=== PATIENT | male | born 1955 | race Hispanic/Latino ===

== ENCOUNTER 2019-01-11 09:49 | Inpatient (IN) | payer BC ==
[2019-01-11 10:03] VITALS: BMI 32.1
[2019-01-11] MEDS ORDERED: Sodium Chloride 0.9% 1,000 ML IV ONE (10:22)
--- NOTE | 2019-01-11 10:24 | C.PDOC ---
History Of Present Illness 63 year old male presents to ED with worsening left hip pain for the past 3 days. Patient is s/p a left hip stem cell infusion from 01/08. Per patient's , needle was accidentally left behind. Attempted to have needle removed by jazz stewart. Patient was evaluated at [facility] for the same complaint, but "they refuse to admit him to take it out." Patient states that the pain is localized,worse with weight bearing, and position change. Patient is currently taking amoxicillin. Patient is receiving stem cell infusion for left hip arthritis. Patient denies fever and discharge. WORSENING L HIP PAIN SINCE 01/08. S/P STEM CELL L HIP INFUSION 01/08, PER NEEDLE ACCID LEFT BEHIND. ATTEMPTED NEEDLE REMOVAL BY SURGEON, RENATA @ [facility] FOR SAME "BUT THEY REFUSED TO ADMIT HIM TO TAKE IT OUT". PAIN LOCALIZED WORSE W WT BEAR, POSITION CHANGE. ON AMOXIL. NO FEVER, DC. RECEIVING STEM CELL INFUSION FOR L HIP ARTHRITIS EXAM NONTOXIC EXT L HIP AROM WO DIFF REPRODUC PAIN REMAINDER NEG Time Seen by Provider: 01/11/19 10:22 Chief Complaint (Nursing): Abnormal Skin Integrity History Per: Patient, Family () Onset/Duration Of Symptoms: Days (3), Worse Since Current Symptoms Are (Timing): Still Present Past Medical History Reviewed: Historical Data, Nursing Documentation, Vital Signs Vital Signs: Last Vital Signs Temp 98.5 F 01/11/19 10:04 Pulse 66 01/11/19 10:04 Resp 18 01/11/19 10:04 BP 129/85 01/11/19 10:04 Pulse Ox 97 01/11/19 10:04 - Medical History PMH: Arthritis (left hip), Kidney Stones (2010; LEFT KIDNEY), Obstructive Bowel (SBO (2011)), Chronic Kidney Disease (SEE COMMENT) Family History: States: Unknown Family Hx - Social History Hx Alcohol Use: Yes Hx Substance Use: No - Immunization History Hx Tetanus Toxoid Vaccination: Yes Hx Influenza Vaccination: No Hx Pneumococcal Vaccination: No Review Of Systems Constitutional: Negative for: Fever, Weakness Musculoskeletal: Positive for: Other (left hip pain ) Skin: Negative for: Other (discharge from the left hip ) Neurological: Negative for: Weakness, Numbness Physical Exam - Physical Exam Appears: Non-toxic Skin: Normal Color, Warm, Dry Head: Atraumatic, Normacephalic Neck: Normal ROM, Supple Chest: Symmetrical, No Deformity Cardiovascular: Rhythm Regular, No Murmur Respiratory: Accessory Muscle Use, No Rales, No Rhonchi, No Wheezing Gastrointestinal/Abdominal: Soft, No Tenderness Extremity: Capillary Refill (<2 seconds), Other (left hip AROM with out difficulty, reproducible pain ) Pulses: Left Radial: Normal, Right Radial: Normal, Left Dorsalis Pedis: Normal, Right Dorsalis Pedis: Normal Neurological/Psych: Oriented x3, Normal Speech, Normal Cognition ED Course And Treatment - Laboratory Results Result Diagrams: 01/11/19 10:44 01/11/19 10:44 ECG: Interpreted By Me ECG Rhythm: Sinus Rhythm ECG Interpretation: Normal Rate From EC O2 Sat by Pulse Oximetry: 97 (in RA) Pulse Ox Interpretation: Normal - Radiology CXR: Interpreted by Me CXR Interpretation: Yes: No Acute Disease - Other Rad L HIP X-Ray: Interpreted by Me (+L HIP FOREIGN BODY; NO FX) Progress Note: EKG, CXR, and Left hip X-ray ordered for patient. Labs ordered with CBC and CMP. Patient given IV fluids. Progress - Re-Evaluation Re-evaluation Note: 01/11/19 10:[address] angulo, CT HIP PRIOR TO O.R. ADMIT TO HIS C - Data Reviewed Data Reviewed: Lab, Diagnostic imaging, EKG, Old records Disposition Counseled Patient/Family Regarding: Studies Performed, Diagnosis - Disposition Disposition: HOSPITALIZED Disposition Time: 10:24 Condition: STABLE Forms: [facility] (Romansh) - POA Present On Arrival: None - Clinical Impression Clinical Impression: Foreign body hip/leg - Scribe Statement The provider has reviewed the documentation as recorded by the Scribe (Domonique Ramirez) All medical record entries made by the Scribe were at my direction and personally dictated by me. I have reviewed the chart and agree that the record accurately reflects my personal performance of the history, physical exam, medical decision making, and the department course for this patient. I have also personally directed, reviewed, and agree with the discharge instructions and disposition.
[2019-01-11 10:51] LABS: BASO % 0.2 % (0.0-2.0); EOS # 0.1 K/uL (0.0-0.7); HEMOGLOBIN 15.3 g/dL (12.0-18.0); LYMPH # 2.4 K/uL (1.0-4.3); LYMPH % 17.6 % (20.0-40.0); MEAN CELL VOLUME 87.9 fL (80.0-94.0); MEAN CORPUSCULAR HEMOGLOBIN 30.2 pg (27.0-31.0); MEAN CORPUSCULAR HGB CONC 34.3 g/dL (33.0-37.0); MEAN PLATELET VOLUME 6.7 fL (7.2-11.7); MONO # 1.1 K/uL (0.0-0.8); MONO % 7.7 % (0.0-10.0); NEUT # 10.2 K/uL (1.8-7.0); NEUT % 73.5 % (50.0-75.0); RBC 5.07 Mil/uL (4.40-5.90); RED CELL DISTRIBUTION WIDTH 13.5 % (11.5-14.5); WHITE BLOOD COUNT 13.8 K/uL (4.8-10.8)
[2019-01-11 10:58] LABS: INR 1.2; PROTHROMBIN TIME 12.7 SECONDS (9.7-12.2)
[2019-01-11 11:05] LABS: ALB/GLOB RATIO 1.8 (1.0-2.1); ALBUMIN 4.8 g/dL (3.5-5.0); BLOOD UREA NITROGEN 18 mg/dL (9-20); GFR NON-AFRICAN AMERICAN > 60
[2019-01-11 11:11] LABS: ALT/SGPT 21 U/L (21-72); AST/SGOT 52 U/L (17-59)
--- NOTE | 2019-01-11 11:28 | RAD ---
HISTORY: Pre Op COMPARISON: None available. TECHNIQUE: Chest PA and lateral, 2 views FINDINGS: Examination limited by habitus. LUNGS: 3.3 cm rounded opacity seen only on lateral view the level of the pulmonary arteries, possibly artifactual however alternatives including neoplasm cannot be excluded. PLEURA: No significant pleural effusion identified. No definite pneumothorax . CARDIOVASCULAR: Heart size appears within normal limits. Faint atherosclerotic calcifications present. OSSEOUS STRUCTURES: No acute osseous abnormality identified. VISUALIZED UPPER ABDOMEN: Unremarkable. OTHER FINDINGS: None. IMPRESSION: No focal consolidation, pleural effusion, or pneumothorax. 3.3 cm rounded opacity seen only on lateral view the level of the pulmonary arteries. This is favored artifactual due to confluence of shadows, however alternatives such as neoplasm cannot be entirely excluded. No discrete abnormality identified on frontal view. Recommend follow-up CT of the chest with IV contrast if indicated. Findings discussed with Dr. Krishna on 01/11/19 at 11:24 a.m.
[2019-01-11] MEDS ORDERED: ceFAZolin 1 gm in NS 1 GM/100 ML BAG IVPB ONE (12:56)
[2019-01-11] MEDS ORDERED: Bupivacaine 0.25% 20 ML INJ IJ ONE ×2 (12:57→13:58)
[2019-01-11] MEDS ORDERED: Lidocaine Hydrochloride 0 ML INJ ONE (12:57)
[2019-01-11] MEDS ORDERED: Midazolam 2 MG/2 ML VIAL ONE (13:00)
[2019-01-11] MEDS ORDERED: Propofol 10 mg/ml Inj (20 ML) ONE (13:01)
[2019-01-11] MEDS ORDERED: Lidocaine Hydrochloride 5 ML INJ ONE (13:02)
[2019-01-11] MEDS ORDERED: Succinylcholine Chloride 20 mg/ml Syr (5 ml) IV ONE (13:02)
--- NOTE | 2019-01-11 13:04 | CT ---
CT left hip History: Foreign body. Comparison: X-ray dated 01/11/2019 Technique: Multiple contiguous axial images were performed through the left hip without the use of intravenous contrast. Subsequently, sagittal and coronal reformatted images were obtained. Findings: Prominent approximately 3 centimeter linear radiopaque density seen within the lateral aspect of the left gluteus medius muscle consistent with the known displaced needle metallic fragment. Reticulation and edema seen within the overlying lateral soft tissues at the level of the left gluteus musculature. Focal calcifications seen within the left iliac vessels. Moderate narrowing of the left hip joint space with subchondral sclerosis, subchondral cyst formation, and osteophytosis. Some mild osteophytosis and or bony productive change seen at the anterior and posterior aspects of the joint space. 7 millimeter rounded lucent foci seen at the lateral aspect of the left femoral head neck junction with peripheral sclerosis, nonspecific. Mild calcification at the left hamstring tendon origins. Fecal retention in the colon with colonic diverticulosis. Impression: 1. Prominent approximately 3 centimeter linear radiopaque density seen within the lateral aspect of the left gluteus medius muscle consistent with the known displaced needle metallic fragment/foreign body. 2. Reticulation and edema seen within the overlying lateral soft tissues at the level of the left gluteus musculature. 3. Focal calcifications seen within the left iliac vessels. 4. Moderate narrowing of the left hip joint space with subchondral sclerosis, subchondral cyst formation, and osteophytosis. Some mild osteophytosis and or bony productive change seen at the anterior and posterior aspects of the joint space. 5. 7 millimeter rounded lucent foci seen at the lateral aspect of the left femoral head neck junction with peripheral sclerosis, nonspecific. 6. Mild calcification at the left hamstring tendon origins. 7. Fecal retention in the colon with colonic diverticulosis.
[2019-01-11] MEDS ORDERED: Bacitracin Ointment 30 GM TUBE ONE (13:58)
[2019-01-11] MEDS ORDERED: Neostigmine 1:1000 (1 mg/ml) Inj ONE (14:04)
[2019-01-11] MEDS ORDERED: Rocuronium 10 mg/ml (5 ml) ONE (14:05)
[2019-01-11] MEDS ORDERED: Lactated Ringer's 1,000 ML IV SCH (14:30)
[2019-01-11] MEDS ORDERED: Oxycodone/Acetaminophen 5/325 mg Tab PO PRN (14:30)
[2019-01-11] MEDS: HYDROmorphone 0.5 mg/0.5 ml ISec IVP PRN ×2 (14:40→14:55)
--- NOTE | 2019-01-11 14:46 | RAD ---
Date of service: 01/11/2019 PROCEDURE: Intraoperative Fluoroscopy. HISTORY: LEFT HIP foreign body FINDINGS: Fluoroscopic assistance was provided for left gluteal foreign body removal. Please refer to the operative report from [facility].
--- NOTE | 2019-01-11 15:56 | RAD ---
PROCEDURE: Left Hip X-ray Radiographs. HISTORY: L HIP FOREIGN BODY COMPARISON: None. TECHNIQUE: 2 views obtained. FINDINGS: BONES: Normal. No fracture. JOINTS: Degenerative osteoarthritis both hip joints left greater than right. SOFT TISSUES: There is a linear metallic density (questionable broken pin) measuring approximately 3 mm in length in soft tissues the left buttock or left lateral hip. OTHER FINDINGS: None. IMPRESSION: There is a linear metallic density (questionable broken pin) measuring 3 mm within the soft tissues of the left buttock or left lateral hip. Degenerative osteoarthritis both hip joints left greater than right.. No evidence of acute displaced fracture nor dislocation. Note that this report was placed in PA review folder for follow up.
[2019-01-11] MEDS: ceFAZolin 1 GM in Sodium Chloride 0.9% 100 ML IVPB SCH (21:07)
[2019-01-12 01:56] VITALS: RESP 20; O2SAT 95
[2019-01-12] MEDS: ceFAZolin 1 GM in Sodium Chloride 0.9% 100 ML IVPB SCH ×2 (05:23→12:02)
--- NOTE | 2019-01-12 06:40 | OP ---
PROCEDURE DATE: 01/11/2019 PREOPERATIVE DIAGNOSIS: Foreign body (injection needle) of the left hip. POSTOPERATIVE DIAGNOSIS: Foreign body (injection needle) of the left hip. PROCEDURE PERFORMED: Complex removal of foreign body of the left hip in pelvic area with C-arm guidance. SURGEON: Ed Fernando MD TYPE OF ANESTHESIA: General endotracheal. ESTIMATED BLOOD LOSS: 20 mL. POSTOPERATIVE CONDITION: Stable. INDICATIONS FOR SURGERY: This is a 63-year-old male, seen last week in his doctor's office where he was undergoing an injection of stem cells into his left hip. The needle broke off, and he underwent a small local procedure in the office to remove it, which was unsuccessful. He subsequently was seen in the emergency room today, where he underwent a CAT scan of the hip which revealed a needle, the needle being embedded in the gluteus hank muscle. He was taken to the OR now for removal under C-arm guidance. DESCRIPTION OF PROCEDURE: The patient was taken to the operating room. General anesthesia was administered. He was placed in right lateral decubitus position and the left hip area was prepped and draped. After reviewing the CT films and localizing the needle with the C-arm, an incision was made between the left iliac crest and the left greater trochanter transversely and carried down to the gluteus hank muscle where the fascia was opened up, and from this point on, there were multiple attempts using the C-arm to localize the needle. The muscle was divided and bleeding pelvic blood vessel was repaired. After approximately half hour of searching for the needle, the needle was grasped using a hemostat and pulled to the surface and removed. This was documented by C-arm. The wound was irrigated with copious amounts of saline solution. Fascial layers were closed with Monocryl in an advancement flap method. The subcutaneous tissue was closed with Monocryl, and the skin was closed with skin clips. The patient tolerated the procedure well, returned to recovery room in stable condition. Ed Fernando MD
[2019-01-12 07:08] LABS: BASO % 0.2 % (0.0-2.0); EOS % 0.3 % (0.0-4.0); HEMOGLOBIN 14.5 g/dL (12.0-18.0); LYMPH # 1.8 K/uL (1.0-4.3); LYMPH % 10.7 % (20.0-40.0); MEAN CELL VOLUME 87.3 fL (80.0-94.0); MEAN CORPUSCULAR HEMOGLOBIN 31.2 pg (27.0-31.0); MEAN CORPUSCULAR HGB CONC 35.8 g/dL (33.0-37.0); MEAN PLATELET VOLUME 6.3 fL (7.2-11.7); MONO # 1.3 K/uL (0.0-0.8); MONO % 8.1 % (0.0-10.0); NEUT # 13.2 K/uL (1.8-7.0); NEUT % 80.7 % (50.0-75.0); NRBC % 0.1 % (0.0-2.0); RBC 4.66 Mil/uL (4.40-5.90); RED CELL DISTRIBUTION WIDTH 13.6 % (11.5-14.5); WHITE BLOOD COUNT 16.4 K/uL (4.8-10.8)
[2019-01-12 08:01] LABS: BLOOD UREA NITROGEN 14 mg/dL (9-20); CALCIUM 9.3 mg/dl (8.6-10.4); GFR NON-AFRICAN AMERICAN > 60
[2019-01-12 08:32] VITALS: BP 184/76; PULSE 86; TEMP 97.2
--- NOTE | 2019-01-12 10:05 | RAD ---
Date of service: 01/12/2019 PROCEDURE: Radiographs of the left elbow. HISTORY: swelling and pain COMPARISON: No prior. TECHNIQUE: 3 views obtained. FINDINGS: BONES: No fracture or lytic lesion. There is a small bony excrescence and/or contiguous tendinous calcification bordering the medial humeral epicondyle be seen with tug effects in can be seen with calcific/ossific tendinopathy. Findings are inferred as chronic here JOINTS: No significant appearing arthrosis SOFT TISSUES: Subcutaneous reticulated edema posterior and medial aspect-compatible with a cellulitis or lymphedema. These findings also blend with posterior tissue swelling bordering the olecranon-an olecranon bursitis needs to be considered. The sterility of any such potential bursitis is not known. JOINT EFFUSION: No anterior elbow joint effusion noted.-a small olecranon bursitis is suspect. OTHER FINDINGS: Less conspicuous less dense ossification calcification also borders the lateral humeral epicondyle-the possibility of some concomitant vascular calcifications in this location are not excluded. Chronicity here is favored IMPRESSION: No fracture or lytic lesion. Incidentally noted is calcification/ossification bordering the medial humeral epicondyle-chronicity is favored-calcifications/calcification of the medial common flexor tendon here is a consideration. An old osseous avulsion injury is another consideration. No acute trauma here inferred. Less conspicuous less dense ossification calcification also borders the lateral humeral epicondyle-the possibility of some concomitant vascular calcifications in this location are not excluded. Chronicity here is favored Subcutaneous reticulated edema-lymphedema/cellulitis inferred. No gas-forming cellulitis noted. Findings blend with a suspect concomitant small olecranon bursitis. Correlate clinically
--- NOTE | 2019-01-12 20:26 | CARD ---
APPROVED REPORT Date of service: 01/11/2019 EKG Measurement Heart [id number] <Conclusion> Normal sinus rhythm Normal ECG
[2019-01-13] MEDS ORDERED: Pneumococcal 23-Valent Vaccine IM ONE (10:00)
== END 2019-01-12 14:42 | disposition home or self-care (01) | DRG 465 ==
LOC: C.ER 09:49 → C.9E 10:23 → OBSVTOIN 14:32 → C.6T 18:52
PROVIDERS: ADMIT Surgery; ATTEND Surgery
PROC: 0KCP0ZZ Extirpation of Matter from Left Hip Muscle, Open Approach (ICD-10-PCS; 2019-01-11)
PROC: 0HXJXZZ Transfer Left Upper Leg Skin, External Approach (ICD-10-PCS; principal; 2019-01-11 13:00)
DX: M79.5 Residual foreign body in soft tissue (principal); M16.12 Unilateral primary osteoarthritis, left hip